=== PATIENT | male | born 1995 | race African-American/Black ===

== ENCOUNTER 2022-03-15 10:10 | Emergency (ER) | payer OTHER ==
[2022-03-15 10:57] VITALS: RESP 18; TEMP 97.8; BMI 51.6
[2022-03-15] MEDS ORDERED: SODIUM CHLORIDE 1,000 ML IV STA (11:08)
[2022-03-15 12:15] LABS: BASO % 0.7 % (0-2.0); EOS % 1.4 % (0-4.5); HEMATOCRIT 41.6 % (35.4-49); HEMOGLOBIN 13.2 GM/dL (11.7-16.9); LYMPH % 32.2 % (8-40); MCH 27.2 pg (25.7-33.7); MCHC 31.8 g/dl (32.0-35.9); MEAN CELL VOLUME 85.7 fl (80-96); MEAN PLT VOLUME 7.3 fl (7.5-11.1); MONO % 11.7 % (3.8-10.2); PLATELET COUNT 284 10^3/uL (134-434); RBC 4.86 M/mm3 (4.00-5.60); RDW 14.1 % (11.9-15.9); WHITE BLOOD COUNT 5.5 K/mm3 (4.0-10.0)
[2022-03-15 12:23] LABS: ACTIVATED PTT 37.4 SECONDS (25.2-36.5); INR 0.97 (0.83-1.09); PROTHROMBIN TIME (PATIENT) 11.2 SEC (9.7-13.0)
[2022-03-15 12:33] LABS: CALCIUM 8.7 mg/dL (8.5-10.1)
[2022-03-15 12:34] LABS: ALBUMIN 3.7 g/dl (3.4-5.0); BLOOD UREA NITROGEN 15.4 mg/dL (7-18)
[2022-03-15 12:37] LABS: CREATININE 0.8 mg/dL (0.55-1.3)
[2022-03-15 12:38] LABS: BILIRUBIN,TOTAL 0.3 mg/dL (0.2-1)
[2022-03-15 12:39] LABS: TOT PROT 7.4 g/dl (6.4-8.2)
[2022-03-15 13:03] LABS: ERYTHROCYTE SEDIMENTATION RATE 23 mm/hr (0-10)
[2022-03-15 14:35] VITALS: BP 158/97; PULSE 88
== END 2022-03-15 14:36 | disposition home or self-care (01) ==
LOC: JER 10:10
PROC: 3E0337Z Introduction of Electrolytic and Water Balance Substance into Peripheral Vein, Percutaneous Approach (ICD-10-PCS; principal; 2022-03-15)
DX: R42 Dizziness and giddiness (principal)
CPT/HCPCS: 36415; 70450-TC; 80053; 84484; 85025; 85610; 85651; 85730; 93005; 93010; 99285-25